=== PATIENT | male | born 1965 | race African-American/Black ===

== ENCOUNTER 2021-02-23 13:30 | Inpatient (IN) | payer OTHER ==
[2021-02-23 16:22] VITALS: BMI 38.7
[2021-02-23] MEDS ORDERED: ACETAMINOPHEN 325 MG TABLET (FP) PO PRN (16:24)
[2021-02-23] MEDS ORDERED: MAG HYDROX/AL HYDROX/SIMETH 30 ML UNIT-DOSE CUP PO PRN (16:24)
[2021-02-23] MEDS ORDERED: MAGNESIUM HYDROX 2400MG/30ML ORAL SUSPENSION 30 ML CUP PO PRN (16:24)
[2021-02-23] MEDS ORDERED: MAGNESIUM CITRATE 300 ML BOTTLE PO PRN (16:24)
[2021-02-23] MEDS ORDERED: MENTHOL/PHENOL 1 EACH UD MM PRN (16:24)
[2021-02-23] MEDS ORDERED: BISMUTH SUBSALICYLATE 524 MG/30 ML PO PRN (16:24)
[2021-02-23] MEDS ORDERED: ONDANSETRON *ODT* 4 MG TABLET SL PRN (16:24)
[2021-02-23] MEDS: MELATONIN 5 MG TABLETS PO SCH (21:29)
[2021-02-23] MEDS: PRENATAL VITAMINS W/ FOLIC ACID TABLET (FP) PO SCH (21:29)
[2021-02-23] MEDS: METHOCARBAMOL 500 MG TABLET PO PRN (21:30)
[2021-02-23] MEDS: IBUPROFEN 400 MG TABLET (FP) PO PRN (21:30)
[2021-02-23] MEDS: hydrOXYzine PAMOATE 25 MG CAPSULE (FP) PO SCH ×3 (21:30→21:49)
[2021-02-23] MEDS: THIAMINE HCL 100 MG TABLET (FP) PO SCH (21:30)
[2021-02-23] MEDS: NICOTINE 10 MG CARTRIDGE (INHALER) IH PRN (21:51)
[2021-02-24] MEDS: hydrOXYzine PAMOATE 25 MG CAPSULE (FP) PO SCH ×2 (06:25→10:59)
[2021-02-24] MEDS: METHOCARBAMOL 500 MG TABLET PO PRN ×2 (09:26→20:13)
[2021-02-24] MEDS: IBUPROFEN 400 MG TABLET (FP) PO PRN ×2 (09:26→20:13)
[2021-02-24] MEDS: NICOTINE 10 MG CARTRIDGE (INHALER) IH PRN ×2 (10:57→17:29)
[2021-02-24] MEDS: PRENATAL VITAMINS W/ FOLIC ACID TABLET (FP) PO SCH (10:59)
[2021-02-24 11:45] LABS: HEMATOCRIT 40.3 % (35.4-49); HEMOGLOBIN 13.2 GM/dL (11.7-16.9); MCH 30.9 pg (25.7-33.7); MCHC 32.9 g/dl (32.0-35.9); MEAN CELL VOLUME 93.9 fl (80-96); MEAN PLT VOLUME 9.4 fl (7.5-11.1); PLATELET COUNT 244 10^3/uL (134-434); RBC 4.29 M/mm3 (4.00-5.60); RDW 13.4 % (11.9-15.9); WHITE BLOOD COUNT 8.6 K/mm3 (4.0-10.0)
[2021-02-24] MEDS ORDERED: diazePAM 5 MG TABLET PO ONE (11:55)
[2021-02-24] MEDS ORDERED: diazePAM 5 MG TABLET PO PRN (11:55)
[2021-02-24 12:14] LABS: CALCIUM 8.3 mg/dL (8.5-10.1)
[2021-02-24 12:19] LABS: TOT PROT 7.5 g/dl (6.4-8.2)
[2021-02-24 12:20] LABS: BILIRUBIN,TOTAL 1.2 mg/dL (0.2-1)
[2021-02-24] MEDS: diazePAM 5 MG TABLET PO SCH ×2 (17:28→22:37)
[2021-02-24] MEDS: MELATONIN 5 MG TABLETS PO SCH (22:34)
[2021-02-24] MEDS: THIAMINE HCL 100 MG TABLET (FP) PO SCH (22:34)
[2021-02-25] MEDS: diazePAM 5 MG TABLET PO SCH ×4 (06:23→22:56)
[2021-02-25] MEDS: NICOTINE 10 MG CARTRIDGE (INHALER) IH PRN ×3 (06:31→22:19)
[2021-02-25] MEDS: PRENATAL VITAMINS W/ FOLIC ACID TABLET (FP) PO SCH (10:28)
[2021-02-25] MEDS: IBUPROFEN 400 MG TABLET (FP) PO PRN ×2 (10:30→22:19)
[2021-02-25] MEDS: METHOCARBAMOL 500 MG TABLET PO PRN ×2 (10:31→17:31)
[2021-02-25] MEDS: hydrOXYzine PAMOATE 25 MG CAPSULE (FP) PO PRN ×2 (17:30→22:21)
[2021-02-25] MEDS: MELATONIN 5 MG TABLETS PO SCH (22:19)
[2021-02-25] MEDS: QUEtiapine FUMARATE 100 MG TABLET (FP) PO SCH (22:20)
[2021-02-25] MEDS: THIAMINE HCL 100 MG TABLET (FP) PO SCH (22:21)
[2021-02-26] MEDS: IBUPROFEN 400 MG TABLET (FP) PO PRN ×2 (06:00→22:50)
[2021-02-26] MEDS: METHOCARBAMOL 500 MG TABLET PO PRN ×2 (06:01→22:50)
[2021-02-26] MEDS: diazePAM 5 MG TABLET PO SCH ×3 (06:01→22:51)
[2021-02-26] MEDS: PRENATAL VITAMINS W/ FOLIC ACID TABLET (FP) PO SCH (10:12)
[2021-02-26] MEDS: ACETAMINOPHEN 325 MG TABLET (FP) PO PRN (10:13)
[2021-02-26] MEDS: NICOTINE 10 MG CARTRIDGE (INHALER) IH PRN (10:14)
[2021-02-26] MEDS: THIAMINE HCL 100 MG TABLET (FP) PO SCH (22:49)
[2021-02-26] MEDS: MELATONIN 5 MG TABLETS PO SCH (22:49)
[2021-02-26] MEDS: QUEtiapine FUMARATE 100 MG TABLET (FP) PO SCH (22:50)
[2021-02-27] MEDS: diazePAM 5 MG TABLET PO SCH ×2 (06:33→17:33)
[2021-02-27] MEDS: METHOCARBAMOL 500 MG TABLET PO PRN (07:48)
[2021-02-27] MEDS: IBUPROFEN 400 MG TABLET (FP) PO PRN ×2 (07:48→21:19)
[2021-02-27] MEDS ORDERED: PENICILLIN G BENZATHINE 2,400,000 UNIT/4 ML PFS IM ONE (10:33)
[2021-02-27] MEDS: PRENATAL VITAMINS W/ FOLIC ACID TABLET (FP) PO SCH (12:34)
[2021-02-27] MEDS: MELATONIN 5 MG TABLETS PO SCH (21:19)
[2021-02-27] MEDS: QUEtiapine FUMARATE 100 MG TABLET (FP) PO SCH (21:19)
[2021-02-27] MEDS: THIAMINE HCL 100 MG TABLET (FP) PO SCH (21:19)
[2021-02-28] MEDS ORDERED: diazePAM 5 MG TABLET PO ONE (06:00)
[2021-02-28] MEDS: PRENATAL VITAMINS W/ FOLIC ACID TABLET (FP) PO SCH (10:44)
[2021-02-28] MEDS: METHOCARBAMOL 500 MG TABLET PO PRN ×2 (10:44→18:25)
[2021-02-28] MEDS: ACETAMINOPHEN 325 MG TABLET (FP) PO PRN (18:25)
[2021-02-28] MEDS: MELATONIN 5 MG TABLETS PO SCH (23:16)
[2021-02-28] MEDS: QUEtiapine FUMARATE 100 MG TABLET (FP) PO SCH (23:17)
[2021-02-28] MEDS: hydrOXYzine PAMOATE 25 MG CAPSULE (FP) PO PRN (23:17)
[2021-02-28] MEDS: THIAMINE HCL 100 MG TABLET (FP) PO SCH (23:17)
[2021-02-28] MEDS: IBUPROFEN 400 MG TABLET (FP) PO PRN (23:17)
[2021-03-01 09:36] VITALS: BP 143/78; PULSE 81; TEMP 96.9
[2021-03-01] MEDS: PRENATAL VITAMINS W/ FOLIC ACID TABLET (FP) PO SCH (11:17)
== END 2021-03-01 13:30 | disposition home or self-care (01) | DRG 774 ==
LOC: YASAS 13:30 → UNDOADMIN 20:03 → Y3N 20:03
PROVIDERS: ADMIT Allergy & Immunology; ATTEND Allergy & Immunology
PROC: HZ2ZZZZ Detoxification Services for Substance Abuse Treatment (ICD-10-PCS; principal; 2021-02-23)
DX: F10.230 Alcohol dependence with withdrawal, uncomplicated (principal); F14.20 Cocaine dependence, uncomplicated; F17.210 Nicotine dependence, cigarettes, uncomplicated; F19.24 Other psychoactive substance dependence with psychoactive substance-induced mood disorder; G47.00 Insomnia, unspecified; A53.9 Syphilis, unspecified; R73.9 Hyperglycemia, unspecified; U07.1 COVID-19; E66.9 Obesity, unspecified; Z68.38 Body mass index [BMI] 38.0-38.9, adult; Z56.0 Unemployment, unspecified; Z59.01 Sheltered homelessness
CPT/HCPCS: 36415; 80053; 85027; 86593; 86780; C9803; U0003; U0005

== ENCOUNTER 2022-04-10 10:34 | Inpatient (IN) | payer OTHER ==
[2022-04-10 12:24] VITALS: BMI 24.2
[2022-04-10] MEDS ORDERED: POLYETHYLENE GLYCOL (HEALTHYLAX) 3350 17 GM PACKET PO PRN (13:41)
[2022-04-10] MEDS ORDERED: DICYCLOMINE HCL 10 MG CAPSULE PO PRN (13:41)
[2022-04-10] MEDS ORDERED: MAGNESIUM HYDROX 2400MG/30ML ORAL SUSPENSION 30 ML CUP PO PRN (13:41)
[2022-04-10] MEDS ORDERED: IBUPROFEN 400 MG TABLET (FP) PO PRN (13:41)
[2022-04-10] MEDS ORDERED: MAG HYDROX/AL HYDROX/SIMETH 30 ML UNIT-DOSE CUP PO PRN (13:41)
[2022-04-10] MEDS ORDERED: BISMUTH SUBSALICYLATE 524 MG/30 ML PO PRN (13:41)
[2022-04-10] MEDS ORDERED: diazePAM 5 MG TABLET PO PRN (13:41)
[2022-04-10] MEDS ORDERED: IBUPROFEN 600 MG TABLET (FP) PO PRN (13:41)
[2022-04-10] MEDS ORDERED: LOPERAMIDE HCL 2 MG CAPSULE PO PRN (13:41)
[2022-04-10] MEDS ORDERED: ACETAMINOPHEN 325 MG TABLET (FP) PO PRN (13:41)
[2022-04-10] MEDS ORDERED: NALOXONE HCL (KLOXXADO) 8 MG SPRAY NS PRN (13:41)
[2022-04-10] MEDS ORDERED: ONDANSETRON *ODT* 4 MG TABLET SL PRN (13:41)
[2022-04-10] MEDS ORDERED: NICOTINE 10 MG CARTRIDGE (INHALER) IH PRN (13:41)
[2022-04-10] MEDS ORDERED: BENZOCAINE/MENTHOL (CHLORASEPTIC ) LOZENGE MM PRN (13:41)
[2022-04-10] MEDS: PRENATAL VITAMINS W/ FOLIC ACID TABLET (FP) PO SCH (14:51)
[2022-04-10] MEDS: diazePAM 5 MG TABLET PO SCH ×2 (17:31→23:29)
[2022-04-10] MEDS: ACETAMINOPHEN 325 MG TABLET (FP) PO PRN (17:33)
[2022-04-10] MEDS ORDERED: MELATONIN 5 MG TABLETS PO SCH (22:00)
[2022-04-10] MEDS ORDERED: QUEtiapine FUMARATE 50 MG TABLET PO ONE (23:08)
[2022-04-10] MEDS: hydrOXYzine PAMOATE 25 MG CAPSULE (FP) PO PRN (23:29)
[2022-04-10] MEDS: THIAMINE HCL 100 MG TABLET (FP) PO SCH (23:29)
[2022-04-10] MEDS: METHOCARBAMOL 500 MG TABLET PO PRN (23:29)
[2022-04-11] MEDS: diazePAM 5 MG TABLET PO SCH ×4 (05:18→22:40)
[2022-04-11] MEDS: PRENATAL VITAMINS W/ FOLIC ACID TABLET (FP) PO SCH (10:04)
[2022-04-11 14:49] LABS: BLOOD UREA NITROGEN 11.4 mg/dL (7-18); HEMATOCRIT 37.2 % (35.4-49); HEMOGLOBIN 12.3 GM/dL (11.7-16.9); MCH 31.6 pg (25.7-33.7); MEAN CELL VOLUME 95.9 fl (80-96); MEAN PLT VOLUME 8.9 fl (7.5-11.1); PLATELET COUNT 214 10^3/uL (134-434); RBC 3.88 M/mm3 (4.00-5.60); RDW 13.1 % (11.9-15.9); WHITE BLOOD COUNT 7.7 K/mm3 (4.0-10.0)
[2022-04-11 14:50] LABS: ALBUMIN 3.5 g/dl (3.4-5.0)
[2022-04-11 14:53] LABS: CREATININE 0.8 mg/dL (0.55-1.3)
[2022-04-11 14:54] LABS: BILIRUBIN,TOTAL 0.3 mg/dL (0.2-1); TOT PROT 7.9 g/dl (6.4-8.2)
[2022-04-11] MEDS: THIAMINE HCL 100 MG TABLET (FP) PO SCH (22:39)
[2022-04-11] MEDS: QUEtiapine FUMARATE 50 MG TABLET PO PRN (22:39)
[2022-04-12] MEDS: diazePAM 5 MG TABLET PO SCH ×3 (05:21→22:26)
[2022-04-12] MEDS: PRENATAL VITAMINS W/ FOLIC ACID TABLET (FP) PO SCH (10:37)
[2022-04-12] MEDS: BACITRACIN 0.9 GM PACKET TP SCH (16:02)
[2022-04-12] MEDS: ACETAMINOPHEN 325 MG TABLET (FP) PO PRN (16:04)
[2022-04-12] MEDS: METHOCARBAMOL 500 MG TABLET PO PRN (22:25)
[2022-04-12] MEDS: QUEtiapine FUMARATE 50 MG TABLET PO PRN (22:25)
[2022-04-12] MEDS: THIAMINE HCL 100 MG TABLET (FP) PO SCH (22:26)
[2022-04-12] MEDS: hydrOXYzine PAMOATE 25 MG CAPSULE (FP) PO PRN (22:26)
[2022-04-13] MEDS ORDERED: diazePAM 5 MG TABLET PO SCH ×2 (06:00→18:00)
[2022-04-13] MEDS: PRENATAL VITAMINS W/ FOLIC ACID TABLET (FP) PO SCH (10:16)
[2022-04-13] MEDS: BACITRACIN 0.9 GM PACKET TP SCH (10:16)
[2022-04-13] MEDS: METHOCARBAMOL 500 MG TABLET PO PRN (22:12)
[2022-04-13] MEDS: QUEtiapine FUMARATE 50 MG TABLET PO PRN (22:12)
[2022-04-13] MEDS: THIAMINE HCL 100 MG TABLET (FP) PO SCH (22:12)
[2022-04-14] MEDS ORDERED: diazePAM 5 MG TABLET PO ONE (06:00)
[2022-04-14] MEDS: PRENATAL VITAMINS W/ FOLIC ACID TABLET (FP) PO SCH (11:11)
[2022-04-14] MEDS: BACITRACIN 0.9 GM PACKET TP SCH (11:11)
[2022-04-14 13:58] VITALS: BP 142/70; PULSE 94; RESP 16; TEMP 96.8
== END 2022-04-14 15:48 | disposition other institution (70) | DRG 774 ==
LOC: YASAS 10:34 → Y3N 14:01 → UNDOADMIN 14:01
PROVIDERS: ADMIT Allergy & Immunology; ATTEND Surgery
PROC: HZ2ZZZZ Detoxification Services for Substance Abuse Treatment (ICD-10-PCS; principal; 2022-04-10)
DX: F10.230 Alcohol dependence with withdrawal, uncomplicated (principal); F14.20 Cocaine dependence, uncomplicated; F12.20 Cannabis dependence, uncomplicated; F17.210 Nicotine dependence, cigarettes, uncomplicated; F19.282 Other psychoactive substance dependence with psychoactive substance-induced sleep disorder; F19.24 Other psychoactive substance dependence with psychoactive substance-induced mood disorder; Z86.19 Personal history of other infectious and parasitic diseases; S00.81XD Abrasion of other part of head, subsequent encounter; W19.XXXD Unspecified fall, subsequent encounter
CPT/HCPCS: 36415; 80053; 85027; 86593; 86780; 87811; C9803-CS; U0003; U0005

== ENCOUNTER 2022-04-14 15:52 | Inpatient (IN) | payer OTHER ==
[2022-04-14] MEDS ORDERED: guaiFENesin 200 MG/10 ML 10 ML UNIT-DOSE CUPS PO PRN (21:28)
[2022-04-14] MEDS ORDERED: LOPERAMIDE HCL 2 MG CAPSULE PO PRN (21:28)
[2022-04-14] MEDS ORDERED: P-EPHED 60MG/TRIPROLIDI 2.5MG TABLET PO PRN (21:28)
[2022-04-14] MEDS ORDERED: POLYETHYLENE GLYCOL (HEALTHYLAX) 3350 17 GM PACKET PO PRN (21:28)
[2022-04-14] MEDS ORDERED: hydrOXYzine PAMOATE 25 MG CAPSULE (FP) PO PRN (21:28)
[2022-04-14] MEDS ORDERED: MAG HYDROX/AL HYDROX/SIMETH 30 ML UNIT-DOSE CUP PO PRN (21:28)
[2022-04-14] MEDS ORDERED: MAGNESIUM HYDROX 2400MG/30ML ORAL SUSPENSION 30 ML CUP PO PRN (21:28)
[2022-04-14] MEDS ORDERED: BENZOCAINE/MENTHOL (CHLORASEPTIC ) LOZENGE MM PRN (21:28)
[2022-04-14] MEDS ORDERED: QUEtiapine FUMARATE 50 MG TABLET PO PRN (21:33)
[2022-04-14] MEDS: THIAMINE HCL 100 MG TABLET (FP) PO SCH (21:42)
[2022-04-14] MEDS: MELATONIN 5 MG TABLETS PO SCH (21:42)
[2022-04-15] MEDS: PRENATAL VITAMINS W/ FOLIC ACID TABLET (FP) PO SCH (10:14)
[2022-04-15] MEDS: IBUPROFEN 400 MG TABLET (FP) PO PRN ×2 (10:52→21:11)
[2022-04-15] MEDS: MELATONIN 5 MG TABLETS PO SCH (21:10)
[2022-04-15] MEDS: THIAMINE HCL 100 MG TABLET (FP) PO SCH (21:10)
[2022-04-15] MEDS: QUEtiapine FUMARATE 50 MG TABLET PO PRN (21:10)
[2022-04-15] MEDS: BACITRACIN 15 GM TUBE TOPICAL OINTMENT TP SCH (21:11)
[2022-04-16] MEDS: BACITRACIN 15 GM TUBE TOPICAL OINTMENT TP SCH ×2 (10:18→22:04)
[2022-04-16] MEDS: PRENATAL VITAMINS W/ FOLIC ACID TABLET (FP) PO SCH (10:18)
[2022-04-16] MEDS: ACETAMINOPHEN 325 MG TABLET (FP) PO PRN (22:05)
[2022-04-16] MEDS: QUEtiapine FUMARATE 50 MG TABLET PO PRN (22:05)
[2022-04-16] MEDS: MELATONIN 5 MG TABLETS PO SCH (22:05)
[2022-04-16] MEDS: THIAMINE HCL 100 MG TABLET (FP) PO SCH (22:06)
[2022-04-17] MEDS: BACITRACIN 15 GM TUBE TOPICAL OINTMENT TP SCH ×2 (10:17→21:08)
[2022-04-17] MEDS: PRENATAL VITAMINS W/ FOLIC ACID TABLET (FP) PO SCH (10:17)
[2022-04-17] MEDS: QUEtiapine FUMARATE 50 MG TABLET PO PRN (21:08)
[2022-04-17] MEDS: THIAMINE HCL 100 MG TABLET (FP) PO SCH (21:08)
[2022-04-17] MEDS: MELATONIN 5 MG TABLETS PO SCH (21:08)
[2022-04-17] MEDS: IBUPROFEN 400 MG TABLET (FP) PO PRN (21:09)
[2022-04-18] MEDS: BACITRACIN 15 GM TUBE TOPICAL OINTMENT TP SCH ×2 (12:05→22:49)
[2022-04-18] MEDS: IBUPROFEN 400 MG TABLET (FP) PO PRN (15:00)
[2022-04-18] MEDS: THIAMINE HCL 100 MG TABLET (FP) PO SCH (21:49)
[2022-04-18] MEDS: MELATONIN 5 MG TABLETS PO SCH (21:49)
[2022-04-18] MEDS: QUEtiapine FUMARATE 50 MG TABLET PO PRN (21:50)
[2022-04-18] MEDS: ACETAMINOPHEN 325 MG TABLET (FP) PO PRN (21:50)
[2022-04-19] MEDS: BACITRACIN 15 GM TUBE TOPICAL OINTMENT TP SCH ×2 (10:42→21:42)
[2022-04-19] MEDS: THIAMINE HCL 100 MG TABLET (FP) PO SCH (21:40)
[2022-04-19] MEDS: IBUPROFEN 400 MG TABLET (FP) PO PRN (21:40)
[2022-04-19] MEDS: QUEtiapine FUMARATE 50 MG TABLET PO PRN (21:40)
[2022-04-19] MEDS: MELATONIN 5 MG TABLETS PO SCH (21:40)
[2022-04-20] MEDS: BACITRACIN 15 GM TUBE TOPICAL OINTMENT TP SCH ×2 (10:11→21:06)
[2022-04-20] MEDS: IBUPROFEN 400 MG TABLET (FP) PO PRN (17:45)
[2022-04-20] MEDS: QUEtiapine FUMARATE 50 MG TABLET PO PRN (21:05)
[2022-04-20] MEDS: MELATONIN 5 MG TABLETS PO SCH (21:05)
[2022-04-20] MEDS: ACETAMINOPHEN 325 MG TABLET (FP) PO PRN (21:06)
[2022-04-20] MEDS: THIAMINE HCL 100 MG TABLET (FP) PO SCH (21:06)
[2022-04-21] MEDS: PRENATAL VITAMINS W/ FOLIC ACID TABLET (FP) PO PRN (10:23)
[2022-04-21] MEDS: IBUPROFEN 400 MG TABLET (FP) PO PRN (10:24)
[2022-04-21] MEDS: BACITRACIN 15 GM TUBE TOPICAL OINTMENT TP SCH ×2 (10:25→21:06)
[2022-04-21] MEDS: MELATONIN 5 MG TABLETS PO SCH (21:05)
[2022-04-21] MEDS: THIAMINE HCL 100 MG TABLET (FP) PO SCH (21:05)
[2022-04-21] MEDS: ACETAMINOPHEN 325 MG TABLET (FP) PO PRN (21:06)
[2022-04-21] MEDS: QUEtiapine FUMARATE 50 MG TABLET PO PRN (21:06)
[2022-04-22] MEDS: BACITRACIN 15 GM TUBE TOPICAL OINTMENT TP SCH ×2 (10:23→21:09)
[2022-04-22] MEDS: PRENATAL VITAMINS W/ FOLIC ACID TABLET (FP) PO PRN (10:55)
[2022-04-22] MEDS: ACETAMINOPHEN 325 MG TABLET (FP) PO PRN (10:55)
[2022-04-22] MEDS: IBUPROFEN 400 MG TABLET (FP) PO PRN (19:55)
[2022-04-22] MEDS: THIAMINE HCL 100 MG TABLET (FP) PO SCH (21:09)
[2022-04-22] MEDS: MELATONIN 5 MG TABLETS PO SCH (21:09)
[2022-04-22] MEDS: QUEtiapine FUMARATE 50 MG TABLET PO PRN (21:09)
[2022-04-23] MEDS: BACITRACIN 15 GM TUBE TOPICAL OINTMENT TP SCH ×2 (11:08→21:08)
[2022-04-23] MEDS: IBUPROFEN 400 MG TABLET (FP) PO PRN (16:28)
[2022-04-23] MEDS: THIAMINE HCL 100 MG TABLET (FP) PO SCH (21:06)
[2022-04-23] MEDS: MELATONIN 5 MG TABLETS PO SCH (21:06)
[2022-04-23] MEDS: QUEtiapine FUMARATE 50 MG TABLET PO PRN (21:06)
[2022-04-23] MEDS: ACETAMINOPHEN 325 MG TABLET (FP) PO PRN (21:07)
[2022-04-24] MEDS: BACITRACIN 15 GM TUBE TOPICAL OINTMENT TP SCH ×2 (10:26→21:07)
[2022-04-24] MEDS: IBUPROFEN 400 MG TABLET (FP) PO PRN (21:06)
[2022-04-24] MEDS: MELATONIN 5 MG TABLETS PO SCH (21:06)
[2022-04-24] MEDS: QUEtiapine FUMARATE 50 MG TABLET PO PRN (21:06)
[2022-04-24] MEDS: THIAMINE HCL 100 MG TABLET (FP) PO SCH (21:06)
[2022-04-25] MEDS: BACITRACIN 15 GM TUBE TOPICAL OINTMENT TP SCH ×2 (10:21→21:29)
[2022-04-25] MEDS: IBUPROFEN 400 MG TABLET (FP) PO PRN (16:50)
[2022-04-25] MEDS: MELATONIN 5 MG TABLETS PO SCH (21:28)
[2022-04-25] MEDS: QUEtiapine FUMARATE 50 MG TABLET PO PRN (21:28)
[2022-04-25] MEDS: THIAMINE HCL 100 MG TABLET (FP) PO SCH (21:28)
[2022-04-25] MEDS: ACETAMINOPHEN 325 MG TABLET (FP) PO PRN (21:29)
[2022-04-26] MEDS: BACITRACIN 15 GM TUBE TOPICAL OINTMENT TP SCH ×2 (09:58→21:06)
[2022-04-26] MEDS: ACETAMINOPHEN 325 MG TABLET (FP) PO PRN (16:34)
[2022-04-26] MEDS: MELATONIN 5 MG TABLETS PO SCH (21:05)
[2022-04-26] MEDS: THIAMINE HCL 100 MG TABLET (FP) PO SCH (21:05)
[2022-04-26] MEDS: IBUPROFEN 400 MG TABLET (FP) PO PRN (21:05)
[2022-04-26] MEDS: QUEtiapine FUMARATE 50 MG TABLET PO PRN (21:05)
[2022-04-27] MEDS: BACITRACIN 15 GM TUBE TOPICAL OINTMENT TP SCH ×2 (11:18→21:10)
[2022-04-27] MEDS: ACETAMINOPHEN 325 MG TABLET (FP) PO PRN (16:24)
[2022-04-27] MEDS: THIAMINE HCL 100 MG TABLET (FP) PO SCH (21:10)
[2022-04-27] MEDS: QUEtiapine FUMARATE 50 MG TABLET PO PRN (21:10)
[2022-04-27] MEDS: MELATONIN 5 MG TABLETS PO SCH (21:10)
[2022-04-27] MEDS: IBUPROFEN 400 MG TABLET (FP) PO PRN (21:10)
[2022-04-28] MEDS: BACITRACIN 15 GM TUBE TOPICAL OINTMENT TP SCH ×2 (10:31→21:10)
[2022-04-28] MEDS: ACETAMINOPHEN 325 MG TABLET (FP) PO PRN (18:29)
[2022-04-28] MEDS: QUEtiapine FUMARATE 50 MG TABLET PO PRN (21:09)
[2022-04-28] MEDS: IBUPROFEN 400 MG TABLET (FP) PO PRN (21:09)
[2022-04-28] MEDS: MELATONIN 5 MG TABLETS PO SCH (21:10)
[2022-04-28] MEDS: THIAMINE HCL 100 MG TABLET (FP) PO SCH (21:12)
[2022-04-29] MEDS: BACITRACIN 15 GM TUBE TOPICAL OINTMENT TP SCH ×2 (10:33→21:29)
[2022-04-29] MEDS: ACETAMINOPHEN 325 MG TABLET (FP) PO PRN ×2 (12:27→21:29)
[2022-04-29] MEDS: IBUPROFEN 400 MG TABLET (FP) PO PRN (19:40)
[2022-04-29] MEDS: MELATONIN 5 MG TABLETS PO SCH (21:29)
[2022-04-29] MEDS: THIAMINE HCL 100 MG TABLET (FP) PO SCH (21:29)
[2022-04-29] MEDS: QUEtiapine FUMARATE 50 MG TABLET PO PRN (21:30)
[2022-04-30 07:09] VITALS: BP 113/57; PULSE 72; RESP 16; TEMP 97.8
[2022-04-30] MEDS: IBUPROFEN 400 MG TABLET (FP) PO PRN (09:14)
[2022-04-30] MEDS: BACITRACIN 15 GM TUBE TOPICAL OINTMENT TP SCH (10:15)
== END 2022-04-30 10:00 | disposition home or self-care (01) | DRG 772 ==
LOC: YASAS 15:52 → Y3W 15:53
PROVIDERS: ADMIT Allergy & Immunology; ATTEND Psychiatry & Neurology Pain Medicine
PROC: HZ42ZZZ Group Counseling for Substance Abuse Treatment, Cognitive-Behavioral (ICD-10-PCS; principal; 2022-04-14)
DX: F10.20 Alcohol dependence, uncomplicated (principal); F14.20 Cocaine dependence, uncomplicated; F12.20 Cannabis dependence, uncomplicated; F17.210 Nicotine dependence, cigarettes, uncomplicated; F19.282 Other psychoactive substance dependence with psychoactive substance-induced sleep disorder; F19.24 Other psychoactive substance dependence with psychoactive substance-induced mood disorder; F41.9 Anxiety disorder, unspecified; G47.00 Insomnia, unspecified
CPT/HCPCS: 82962; C9803-CS; U0003; U0005